=== PATIENT | male | born 1970 | race Caucasian/White ===

== ENCOUNTER 2021-05-18 12:22 | Emergency (ER) | payer SELFPAY ==
[2021-05-18 12:34] VITALS: TEMP 97.9; BMI 30.3
[2021-05-18] MEDS ORDERED: ACETAMINOPHEN 500 MG TABLET (FP) PO ONE (13:08)
[2021-05-18] MEDS ORDERED: ACETAMINOPHEN 325 MG TABLET (FP) ONE (13:09)
[2021-05-18] MEDS ORDERED: LIDOCAINE 5% TOPICAL PATCH TP ONE (13:22)
[2021-05-18] MEDS ORDERED: DIPHTH,PERTUSS(ACELL),TET 0.5 ML DISP.SYRIN IM ONE ×2 (13:22→13:41)
[2021-05-18] MEDS ORDERED: LIDOCAINE 5% TOPICAL PATCH ONE (13:41)
[2021-05-18] MEDS ORDERED: IBUPROFEN 400 MG TABLET (FP) PO ONE ×2 (14:11→14:20)
[2021-05-18 15:39] VITALS: BP 128/66; PULSE 74
[2021-05-18] MEDS ORDERED: LIDOCAINE PATCH REMOVAL MC ONE (22:00)
== END 2021-05-18 16:40 | disposition home or self-care (01) ==
LOC: JER 12:22
PROC: 2W3GX1Z Immobilization of Right Thumb using Splint (ICD-10-PCS; principal; 2021-05-18)
PROC: 3E0234Z Introduction of Serum, Toxoid and Vaccine into Muscle, Percutaneous Approach (ICD-10-PCS; 2021-05-18)
DX: M25.551 Pain in right hip (principal); S60.931A Unspecified superficial injury of right thumb, initial encounter
CPT/HCPCS: 71045-TC-FY; 73130-TC-RT-FY; 73523-TC-FY; 90715; 99285-25